=== PATIENT | male | born 2000 | race American Indian/Alaskan Native ===

== ENCOUNTER 2020-12-27 12:42 | Emergency (ER) | payer SELFPAY ==
[2020-12-27] MEDS ORDERED: levETIRAcetam 1000 MG/NS 0.75% 1,000 MG/100 ML BAG IV ONE (13:27)
--- NOTE | 2020-12-27 13:31 | Emergency Department Report ---
ED Seizure HPI - General Chief Complaint: Seizure Stated Complaint: SEIZURE Time Seen by Provider: 12/27/20 13:22 Source: patient, EMS Mode of arrival: Stretcher Limitations: No Limitations - History of Present Illness Initial Comments: Patient is 20 years old male with history of seizure on Keppra. Patient brought to the emergency room for evaluation of 2 episodes of seizure this morning. Patient denied any injury. Patient stated that he is compliant with his medication. Patient denied any fever or chills. MD Complaint: seizure -: This afternoon Description of Episode: loss of consciousness, tonic-clonic movement, post-event confusion Witnessed:: Yes Seizure History: known seizure disorder Place: home Associated Symptoms: denies other symptoms Treatments Prior to Arrival: none - Related Data Allergies Allergy/AdvReac Type Severity Reaction Status Date / Time No Known Allergies Allergy Unverified 12/27/20 13:09 ED Review of Systems ROS: Stated complaint: SEIZURE Other details as noted in HPI Comment: All other systems reviewed and negative Constitutional: denies: chills, fever Respiratory: denies: cough, shortness of breath Cardiovascular: denies: chest pain, palpitations Gastrointestinal: denies: abdominal pain, nausea, vomiting Musculoskeletal: denies: back pain Neurological: denies: headache, weakness ED Past Medical Hx - Past Medical History Hx Seizures: Yes Hx Psychiatric Treatment: Yes (depression) - Social History Smoking Status: Never Smoker Substance Use Type: Marijuana ED Physical Exam - General Limitations: No Limitations General appearance: alert, in no apparent distress - Head Head exam: Present: atraumatic, normocephalic, normal inspection - Eye Eye exam: Present: normal appearance, PERRL - ENT ENT exam: Present: normal exam, normal orophraynx, mucous membranes moist - Neck Neck exam: Present: normal inspection, full ROM. Absent: tenderness, meningismus - Respiratory Respiratory exam: Present: normal lung sounds bilaterally - Cardiovascular Cardiovascular Exam: Present: regular rate, normal rhythm, normal heart sounds - GI/Abdominal GI/Abdominal exam: Present: soft, normal bowel sounds. Absent: distended, guarding, rebound, rigid, organomegaly, mass, bruit, pulsatile mass, hernia - Extremities Exam Extremities exam: Present: normal inspection, full ROM, normal capillary refill. Absent: tenderness, pedal edema, calf tenderness - Back Exam Back exam: Present: normal inspection, full ROM. Absent: CVA tenderness (R), CVA tenderness (L) - Neurological Exam Neurological exam: Present: alert, oriented X3, CN II-XII intact, normal gait, reflexes normal. Absent: motor sensory deficit - Psychiatric Psychiatric exam: Present: normal mood - Skin Skin exam: Present: warm, intact, normal color ED Course Vital Signs 12/27/20 12:59 Temperature 98.5 F Pulse Rate 84 Respiratory 18 Rate Blood Pressure 136/72 O2 Sat by Pulse 97 Oximetry ED Medical Decision Making - Lab Data Result diagrams: 12/27/20 13:41 12/27/20 13:41 - Medical Decision Making Patient is 20 years old male with history of seizure on Keppra. Patient brought to the emergency room for evaluation of 2 episodes of seizure this morning. Patient denied any injury. Patient stated that he is compliant with his medication. Patient denied any fever or chills. Patient received Keppra 1 g IV. No seizure activity observed in the ER. Labs reviewed and is unremarkable. Patient given prescription for Keppra 750 mg twice daily and advised to follow-up with his primary care physician in the next 2 to 3 days and to return to the ER if he develop any new symptoms. Critical care attestation.: If time is entered above; I have spent that time in minutes in the direct care of this critically ill patient, excluding procedure time. ED Disposition Clinical Impression: Seizure Disposition: [id number] PSY HOSP/PSY UNIT Is pt being admited?: No Condition: Stable Instructions: Seizure, Adult, [id number]
[2020-12-27 14:03] LABS: Basophils % (Auto) 0.4 % (0.0-1.8); Eosinophils % (Auto) 0.4 % (0.0-4.3); Hematocrit 42.1 % (35.5-45.6); Hemoglobin 13.3 gm/dl (11.8-15.2); Lymphocytes # (Auto) 0.6 K/mm3 (1.2-5.4); Lymphocytes % (Auto) 9.8 % (13.4-35.0); Mean Corpuscular HGB Conc 32 % (32-34); Mean Corpuscular Volume 73 fl (84-94); Monocytes # (Auto) 0.3 K/mm3 (0.0-0.8); Monocytes % (Auto) 5.2 % (0.0-7.3); Platelet Count 250 K/mm3 (140-440); Red Blood Count 5.76 M/mm3 (3.65-5.03); Red Cell Distribution Width 14.8 % (13.2-15.2)
[2020-12-27 14:27] LABS: Alanine Aminotransferase 25 units/L (7-56); Albumin 4.2 g/dL (3.9-5); BUN/Creatinine Ratio 13; Blood Urea Nitrogen 12 mg/dL (9-20); Hemolysis Index 10
[2020-12-27 14:28] LABS: Bilirubin,Direct < 0.2 mg/dL (0-0.2)
[2020-12-27 17:04] VITALS: BP 113/62
== END 2020-12-27 17:10 ==
LOC: ED 12:42
DX: G40.909 Epilepsy, unspecified, not intractable, without status epilepticus (principal); F12.90 Cannabis use, unspecified, uncomplicated; F32.9 Major depressive disorder, single episode, unspecified
CPT/HCPCS: 36415; 80048; 80076; 85025; 96374; 99285; J1953

== ENCOUNTER 2021-04-30 18:33 | Emergency (ER) | payer SELFPAY ==
[2021-04-30] MEDS ORDERED: SODIUM CHLORIDE 0.9% 1000 ML 1,000 ML IV ONE (20:37)
[2021-04-30] MEDS ORDERED: levETIRAcetam 1000 MG/NS 0.75% 1,000 MG/100 ML BAG IV ONE (20:37)
--- NOTE | 2021-04-30 20:45 | Emergency Department Report ---
ED Seizure HPI - General Chief Complaint: Seizure Stated Complaint: SEIZURE Time Seen by Provider: 04/30/21 20:35 Source: patient, EMS Limitations: No Limitations - History of Present Illness Initial Comments: Patient is a 20-year-old male who presents emergency room with complaints of seizure activity. Patient has a known seizure history. Patient states he supposed be taking Keppra. Patient states he has not taken it for multiple months. Patient states he took one right after his last seizure today. Patient denies confusion. Patient did not have a postictal event. Patient's 2 seizures witnessed by his family and his family called EMS. After the seizures the patie nt returned to baseline. Patient has been noncompliant with his meds for few months. Patient denies chest pain. Patient denies headache. Patient denies blurry vision. Patient denies trauma. Patient denies pain. Patient denies chest pain or shortness of breath. Patient denies recent travel. Patient denies recent international travel. Patient denies exposure to the novel coronavirus. Patient denies sick contacts. Patient denies fever and chills. Patient denies cough. Patient denies diarrhea. Patient denies coming in contact with anybody with symptoms of the novel coronavirus. Complaint: seizure -: Sudden Description of Episode: loss of consciousness, tonic-clonic movement -: second(s) Witnessed:: Yes Trauma: No Seizure History: known seizure disorder, history of non-compliance Place: home Possible Precipitating Event: medication Associated Symptoms: denies: chest pain, confusion, cough, diaphoresis, fever/chills, loss of appetite, malaise, rash, shortness of breath, syncope, weakness, tongue injury, shoulder dislocation Treatments Prior to Arrival: none - Related Data Previous Rx's Medication Instructions Recorded Last Taken Type levETIRAcetam [Keppra TAB] 750 mg PO BID #60 tablet 04/30/21 Unknown Rx Allergies Allergy/AdvReac Type Severity Reaction Status Date / Time No Known Allergies Allergy Unverified 12/27/20 13:09 ED Review of Systems ROS: Stated complaint: SEIZURE Other details as noted in HPI Constitutional: denies: chills, fever Eyes: denies: eye pain, eye discharge, vision change ENT: denies: ear pain, throat pain Respiratory: denies: cough, shortness of breath, wheezing Cardiovascular: denies: chest pain, palpitations Endocrine: no symptoms reported Gastrointestinal: denies: abdominal pain, nausea, diarrhea Genitourinary: denies: urgency, dysuria Musculoskeletal: denies: back pain, joint swelling, arthralgia Skin: denies: rash, lesions Neurological: denies: headache, weakness, paresthesias Psychiatric: denies: anxiety, depression Hematological/Lymphatic: denies: easy bleeding, easy bruising ED Past Medical Hx - Past Medical History Hx Seizures: Yes Hx Psychiatric Treatment: Yes (depression) - Social History Smoking Status: Never Smoker Substance Use Type: Marijuana - Medications Home Medications: Home Medications Medication Instructions Recorded Confirmed Last Taken Type levETIRAcetam [Keppra TAB] 750 mg PO BID #60 tablet 04/30/21 Unknown Rx ED Physical Exam - General Limitations: No Limitations General appearance: alert, in no apparent distress - Head Head exam: Present: atraumatic, normocephalic - Eye Eye exam: Present: normal appearance, PERRL Pupils: Present: normal accommodation - ENT ENT exam: Present: mucous membranes moist - Neck Neck exam: Present: normal inspection - Respiratory Respiratory exam: Present: normal lung sounds bilaterally. Absent: respiratory distress, wheezes, rales - Cardiovascular Cardiovascular Exam: Present: regular rate, normal rhythm. Absent: systolic murmur, diastolic murmur, rubs, gallop - GI/Abdominal GI/Abdominal exam: Present: soft, normal bowel sounds. Absent: distended, tenderness, guarding - Rectal Rectal exam: Present: deferred - Extremities Exam Extremities exam: Present: normal inspection - Back Exam Back exam: Present: normal inspection - Neurological Exam Neurological exam: Present: alert, oriented X3 - Psychiatric Psychiatric exam: Present: normal affect, normal mood - Skin Skin exam: Present: warm, dry, intact, normal color. Absent: rash ED Course Vital Signs 04/30/21 21:11 Temperature 97.9 F Pulse Rate 61 Respiratory 18 Rate Blood Pressure 98/41 [Left] O2 Sat by Pulse 100 Oximetry - Reevaluation(s) Reevaluation #1: Patient states he is feeling fine. Patient denies of seizure activity in the ER. Patient status post IV Keppra. I discussed all results and clinical findings with patient. I discussed plan of care with patient. Patient agrees with plan of care. Patient is stable for discharge. Patient will be discharged home. Patient given discharge instructions. Patient voiced understanding of discharge instructions. 04/30/21 21:54 ED Medical Decision Making - Lab Data Result diagrams: 04/30/21 20:47 04/30/21 20:47 - Medical Decision Making Patient is a 20-year-old male who presents emergency room with complaints of seizure activity. Patient is noncompliant with his medications. Patient had labs done which were essentially unremarkable. Patient did not have any seizure activity witnessed by EMS or in the ER. Patient given IV Keppra and patient will be given a refill of this oral Keppra. Patient does not require any further emergency medical services. Patient not require any further inpatient services. Patient is stable for discharge. Patient discharged home. - Differential Diagnosis Seizure activity, noncompliance., Stress, electrolyte imbalance Critical care attestation.: If time is entered above; I have spent that time in minutes in the direct care of this critically ill patient, excluding procedure time. ED Disposition Clinical Impression: Noncompliance, Seizure Disposition: - TO HOME OR SELFCARE Is pt being admited?: No Does the pt Need Aspirin: No Condition: Stable Instructions: Epilepsy, [id number], Seizure, Adult, [id number] Additional Instructions: Patient to follow-up with primary care in 2 to 3 days. Patient to follow-up with neurologist in 2 to 3 days. Patient to avoid driving in place of heights. Patient to rest. Patient to increase water. Patient to avoid strenuous exercise or heavy lifting until cleared by neurologist and primary care. Patient to take Tylenol or ibuprofen as needed for pain. Patient to take meds as directed. Patient to return to the ER if condition worsens, changes or new symptoms arise. Prescriptions: levETIRAcetam [Keppra TAB] 750 mg PO BID #60 tablet Referrals: CED PRICE MD [Staff Physician] - 2-3 Days ESA ANAYA MD [Staff Physician] - 2-3 Days Time of Disposition: 21:57
[2021-04-30 21:11] VITALS: BP 98/41
[2021-04-30 21:19] LABS: Basophils % (Auto) 0.5 % (0.0-1.8); Eosinophils % (Auto) 0.3 % (0.0-4.3); Lymphocytes # (Auto) 1.1 K/mm3 (1.2-5.4); Lymphocytes % (Auto) 20.6 % (13.4-35.0); Mean Corpuscular HGB Conc 31 % (32-34); Mean Corpuscular Volume 73 fl (84-94); Monocytes # (Auto) 0.4 K/mm3 (0.0-0.8); Monocytes % (Auto) 7.3 % (0.0-7.3); Platelet Count 239 K/mm3 (140-440); Red Blood Count 5.73 M/mm3 (3.65-5.03); Red Cell Distribution Width 14.8 % (13.2-15.2)
[2021-04-30 21:38] LABS: Alanine Aminotransferase 16 units/L (7-56); Albumin 4.4 g/dL (3.9-5); BUN/Creatinine Ratio 16; Blood Urea Nitrogen 13 mg/dL (9-20); Calcium 9.6 mg/dL (8.4-10.2); Hemolysis Index 4
== END 2021-05-01 01:36 | disposition home or self-care (01) ==
LOC: ED 18:33
DX: G40.909 Epilepsy, unspecified, not intractable, without status epilepticus (principal); F12.90 Cannabis use, unspecified, uncomplicated; F32.9 Major depressive disorder, single episode, unspecified; Z79.899 Other long term (current) drug therapy
CPT/HCPCS: 36415; 80053; 85025; 96361; 96374; 99283; J1953; J7030